=== PATIENT | female | born 1935 | race African-American/Black ===

== ENCOUNTER 2022-01-29 13:52 | Inpatient (IN) | payer OTHER, MEDICAID ==
[~2022-01-29] VITALS: Ht 167.6 cm; Wt 100.0 kg
[2022-01-29] MEDS ORDERED: SODIUM CHLORIDE 0.9% 1,000 ML IV ONE (14:15)
[2022-01-29 14:41] LABS: CLARITY URINE CLEAR (CLEAR); COLOR URINE YELLOW (YELLOW); KETONES URINE NEGATIVE (NEGATIVE); LEUKOCYTE ESTERASE URINE NEGATIVE (NEGATIVE); NITRITE URINE NEGATIVE (NEGATIVE); OCCULT BLOOD URINE 1+ (NEGATIVE); PH URINE 7.5 (4.5-8.0); PROTEIN URINE NEGATIVE (NEGATIVE); SPECIFIC GRAVITY URINE 1.005 (1.005-1.030); UROBILINOGEN URINE 0.2 E.U./dL (0.2-1.0)
[2022-01-29 14:43] LABS: BASOPHILS % 0.4 % (0.0-2.0); HEMATOCRIT. 33.8 % (36.0-48.0); LYMPHOCYTES % 15.3 % (20.0-50.0); MEAN CORPUSCULAR HEMOGLOBIN 28.6 pg (28.0-32.0); MEAN CORPUSCULAR VOLUME 87.9 fL (81.0-99.0); MEAN PLATELET VOLUME 9.9 fl (7.4-10.4); MONOCYTES % 13.6 % (2.0-8.0); NEUTROPHILS % 69.7 % (40.0-76.0); PLATELET 279 x1000/uL (130-400); RED BLOOD CELL COUNT 3.84 mill/uL (4.2-5.4); RED CELL DISTRIBUTION WIDTH 17.1 % (11.6-14.6)
[2022-01-29 14:49] LABS: CHLORIDE 105 mEq/L (98-107)
[2022-01-29] MEDS ORDERED: MAGNESIUM/ALUMINUM HYDROXIDE/SIMETHICONE 30ML UDC PO PRN (19:30)
[2022-01-29] MEDS ORDERED: IPRATROPIUM/ALBUTEROL 0.5-3(2.5)MG/3ML NEB NEB PRN (19:30)
[2022-01-29] MEDS ORDERED: ACETAMINOPHEN 325MG TABLET PO PRN ×2 (19:30)
[2022-01-29] MEDS ORDERED: ONDANSETRON HCL 4MG/2ML INJ IV PRN (19:30)
[2022-01-29] MEDS ORDERED: ZOLPIDEM TARTRATE 5MG TABLET PO PRN (19:30)
[2022-01-29] MEDS ORDERED: HYDRALAZINE 20MG/ML VIAL IV PRN (19:30)
[2022-01-29] MEDS ORDERED: GUAIFENESIN 200MG/10ML SUGAR FREE UDC PO PRN (19:30)
[2022-01-29] MEDS ORDERED: NA PHOS,M-B/NA PHOS,DI-BA ENEMA 118ML PR PRN (19:30)
[2022-01-29] MEDS ORDERED: TRAMADOL 50MG TABLET PO PRN (19:30)
[2022-01-29] MEDS ORDERED: DOCUSATE SODIUM 100MG CAPSULE PO PRN (19:30)
[2022-01-29] MEDS ORDERED: NITROGLYCERIN 0.4MG TABLET SL SL PRN (19:30)
[2022-01-29 20:05] LABS: INR 2.4; PROTHROMBIN TIME 24.2 sec (9.6-11.0)
[2022-01-29 20:34] LABS: FOLIC ACID (FOLATE) SERUM 6.2 ng/mL (>5.38)
[2022-01-29] MEDS: APIXABAN 5 MG TABLET PO SCH (20:48)
[2022-01-29 20:54] LABS: T4 FREE 1.4 ng/dL (0.76-1.46)
[2022-01-29 21:00] VITALS: BP 157/42
[2022-01-29] MEDS ORDERED: LISINOPRIL 20MG TABLET PO SCH (21:00)
[2022-01-29] MEDS: FAMOTIDINE 20MG TABLET PO SCH (21:49)
[2022-01-29] MEDS: ATORVASTATIN CALCIUM 40MG TABLET PO SCH (21:50)
[2022-01-29] MEDS ORDERED: ATOR-2 PO (23:46)
[2022-01-29] MEDS ORDERED: FURO-152 PO (23:46)
[2022-01-29] MEDS ORDERED: DABI150C PO (23:46)
[2022-01-29] MEDS ORDERED: AMLO10TA80 PO (23:46)
[2022-01-29] MEDS ORDERED: BENZ100C86 PO (23:46)
[2022-01-29] MEDS ORDERED: TERA1CAP54 PO (23:46)
[2022-01-29] MEDS ORDERED: LOSA100T32 PO (23:46)
[2022-01-30] VITALS: BP 153/54
[2022-01-30 03:32] LABS: CREATINE KINASE 42 IU/L (26-192); CREATINE KINASE MB FRACTION < 1.0 ng/mL (0.5-3.6)
[2022-01-30 04:00] VITALS: BP 122/51
[2022-01-30] MEDS: APIXABAN 5 MG TABLET PO SCH (06:26)
[2022-01-30 07:30] LABS: BASOPHILS % 0.6 % (0.0-2.0); EOSINOPHILS % 1.1 % (0.0-5.0); HEMATOCRIT. 28.7 % (36.0-48.0); HEMOGLOBIN. 9.6 g/dL (12.0-16.0); LYMPHOCYTES % 16.1 % (20.0-50.0); MEAN CORPUSCULAR HEMOGLOBIN 29.2 pg (28.0-32.0); MEAN CORPUSCULAR VOLUME 86.9 fL (81.0-99.0); MEAN PLATELET VOLUME 10.4 fl (7.4-10.4); MONOCYTES % 13.9 % (2.0-8.0); NEUTROPHILS % 68.3 % (40.0-76.0); PLATELET 246 x1000/uL (130-400); RED CELL DISTRIBUTION WIDTH 16.8 % (11.6-14.6)
[2022-01-30 08:00] VITALS: BP 130/81
[2022-01-30 08:58] LABS: CHLORIDE 108 mEq/L (98-107)
[2022-01-30] MEDS ORDERED: AMLODIPINE 5MG TABLET PO SCH (09:00)
[2022-01-30] MEDS ORDERED: ASPIRIN 325MG EC TABLET PO SCH (09:00)
[2022-01-30 09:15] LABS: CREATINE KINASE 43 IU/L (26-192); CREATINE KINASE MB FRACTION < 1.0 ng/mL (0.5-3.6)
[2022-01-30 09:51] LABS: PHOSPHORUS 3.6 mg/dL (2.5-4.9)
[2022-01-30 12:00] VITALS: BP 151/83
[2022-01-30 13:55] LABS: *AMPHETAMINES SCREEN URINE NEGATIVE (NEGATIVE); *BARBITURATES SCREEN URINE NEGATIVE (NEGATIVE); *BENZODIAZEPINES SCREEN URINE NEGATIVE (NEGATIVE); *COCAINE SCREEN URINE NEGATIVE (NEGATIVE); CANNABINOID URINE SCREEN NEGATIVE (NEGATIVE); METHADONE URINE SCREEN NEGATIVE (NEGATIVE); OPIATES URINE SCREEN NEGATIVE (NEGATIVE); PHENCYCLIDINE URINE SCREEN NEGATIVE (NEGATIVE)
[2022-01-30 16:00] VITALS: BP 146/50
[2022-01-30] MEDS: FAMOTIDINE 20MG TABLET PO SCH (20:29)
[2022-01-30] MEDS: ATORVASTATIN CALCIUM 40MG TABLET PO SCH (20:29)
[2022-01-31] VITALS: BP 118/43
[2022-01-31 04:00] VITALS: BP 169/63
[2022-01-31 08:00] VITALS: BP 159/64
[2022-01-31 12:00] VITALS: BP 160/45
[2022-01-31 16:00] VITALS: BP 155/62
[2022-01-31 20:00] VITALS: BP 170/62
[2022-01-31 21:09] LABS: INR 1.2; PROTHROMBIN TIME 12.7 sec (9.6-11.0)
[2022-01-31] MEDS: FAMOTIDINE 20MG TABLET PO SCH (21:24)
[2022-01-31] MEDS: ATORVASTATIN CALCIUM 40MG TABLET PO SCH (21:24)
[2022-02-01] VITALS: BP 138/45
[2022-02-01 04:00] VITALS: BP 155/49
[2022-02-01 08:00] VITALS: BP 173/53
[2022-02-01] MEDS ORDERED: CEFAZOLIN 1000MG PREMIX 100 ML IV ONE (10:27)
[2022-02-01] MEDS ORDERED: LIDOCAINE HCL/PF 1% 10 MG/ML 5ML VIAL ONE (10:27)
[2022-02-01] MEDS ORDERED: MIDAZOLAM HCL 2 MG/2 ML VIAL ONE ×2 (10:28→11:56)
[2022-02-01] MEDS ORDERED: FENTANYL CITRATE/PF 50MCG/ML 2ML VIAL ONE (10:28)
[2022-02-01] MEDS ORDERED: DIPHENHYDRAMINE 50MG/ML VIAL ONE (11:32)
[2022-02-01] MEDS ORDERED: GENTAMICIN/NS IRRIGATION 500 ML IR ONE (11:55)
[2022-02-01] MEDS ORDERED: LORAZEPAM 2MG/ML CPJ IV NR (12:00)
[2022-02-01] MEDS ORDERED: MORPHINE SULFATE 2 MG/ML CPJ (NOT FOR IM USE) IV PRN (13:00)
[2022-02-01] MEDS ORDERED: NALOXONE HCL 0.4MG/ML VIAL IV PRN (13:15)
[2022-02-01 14:15] VITALS: BP 163/69
[2022-02-01 16:00] VITALS: BP 151/61
[2022-02-01] MEDS: CEFAZOLIN 1000MG PREMIX 50 ML IV SCH ×2 (16:59→21:05)
[2022-02-01] MEDS: HYDROCODONE/ACETAMINOPHEN 5/325MG TABLET PO PRN (17:08)
[2022-02-01 20:00] VITALS: BP 128/52
[2022-02-01] MEDS: FAMOTIDINE 20MG TABLET PO SCH (21:06)
[2022-02-01] MEDS: ATORVASTATIN CALCIUM 40MG TABLET PO SCH (21:06)
[2022-02-02] VITALS: BP 137/66
[2022-02-02 04:00] VITALS: BP_SYST 145; BP_SYST 147; BP_DIAS 59
[2022-02-02] MEDS: CEFAZOLIN 1000MG PREMIX 50 ML IV SCH (05:15)
[2022-02-02] MEDS: HYDROCODONE/ACETAMINOPHEN 5/325MG TABLET PO PRN (05:20)
[2022-02-02 07:55] VITALS: BP 145/52
[2022-02-02 09:06] VITALS: BP 145/52
== END 2022-02-02 14:00 | disposition home health service (06) | DRG 243 ==
LOC: ER 13:52 → 6WST 18:26 → EDBEDREQ 18:31 → EDBEDREQTM 18:31 → ENRESERV 19:38
PROVIDERS: ADMIT Internal Medicine; ATTEND Internal Medicine
PROC: 0JH606Z Insertion of Pacemaker, Dual Chamber into Chest Subcutaneous Tissue and Fascia, Open Approach (ICD-10-PCS; principal; 2022-02-01)
PROC: 02H63JZ Insertion of Pacemaker Lead into Right Atrium, Percutaneous Approach (ICD-10-PCS; 2022-02-01)
PROC: 02HK3JZ Insertion of Pacemaker Lead into Right Ventricle, Percutaneous Approach (ICD-10-PCS; 2022-02-01)
DX: I44.2 Atrioventricular block, complete (principal); I50.32 Chronic diastolic (congestive) heart failure; I48.21 Permanent atrial fibrillation; D63.8 Anemia in other chronic diseases classified elsewhere; Z20.822 Contact with and (suspected) exposure to COVID-19; E78.5 Hyperlipidemia, unspecified; E80.6 Other disorders of bilirubin metabolism; R31.9 Hematuria, unspecified; I50.9 Heart failure, unspecified; I11.0 Hypertensive heart disease with heart failure; Z82.49 Family history of ischemic heart disease and other diseases of the circulatory system; Z90.710 Acquired absence of both cervix and uterus; F03.A0 Unspecified dementia, mild, without behavioral disturbance, psychotic disturbance, mood disturbance, and anxiety
CPT/HCPCS: 33208; 36415; 71045; 80053; 80061; 80305; 81003; 82550; 82553; 82607; 82746; 83036; 83540; 83550; 83735; 84100; 84439; 84443; 84484; 85025; 87426; 93005; 93306; 93970; 99291; C1785; C1898; J0360; J0690; J1200; J2060; J2250; J3010; J3490; J7030

== ENCOUNTER 2023-07-10 15:09 | Emergency (ER) | payer OTHER, MEDICAID ==
[~2023-07-10] VITALS: Ht 170.2 cm; Wt 86.0 kg
[~2023-07-10 15:09] MED LIST: AMLO10TA80 PO; ATOR-2 PO; BENZ100C86 PO; DABI150C PO; FURO-152 PO; LOSA100T33 PO; TERA1CAP54 PO
[2023-07-10 15:14] VITALS: TEMP 98; O2SAT 99
[2023-07-10] MEDS: KETOROLAC 30MG/ML VIAL IV STA (15:27)
[2023-07-10] MEDS ORDERED: MORPHINE SULFATE 4 MG/ML INJ (FOR IV/IM USE) IV STA (15:27)
[2023-07-10] MEDS: ONDANSETRON HCL 4MG/2ML INJ IV STA (16:11)
[2023-07-10] MEDS: MORPHINE SULFATE 2 MG/ML CPJ (NOT FOR IM USE) IV ONE (16:11)
[2023-07-10 16:35] LABS: BASOPHILS % 0.7 % (0.0-2.0); EOSINOPHILS % 0.6 % (0.0-5.0); HEMATOCRIT. 36.3 % (36.0-48.0); HEMOGLOBIN. 12.3 g/dL (12.0-16.0); MEAN CORPUSCULAR HEMOGLOBIN 30.7 pg (28.0-32.0); MEAN CORPUSCULAR VOLUME 90.3 fL (81.0-99.0); MEAN PLATELET VOLUME 10.7 fl (7.4-10.4); MONOCYTES % 10.3 % (2.0-8.0); NEUTROPHILS % 80.4 % (40.0-76.0); PLATELET 186 x1000/uL (130-400); RED BLOOD CELL COUNT 4.02 mill/uL (4.2-5.4); RED CELL DISTRIBUTION WIDTH 16.3 % (11.6-14.6); WHITE BLOOD COUNT 6.6 x1000/uL (4.5-11.0)
[2023-07-10 16:44] LABS: INR 1.2; PROTHROMBIN TIME 12.7 sec (9.6-11.0)
[2023-07-10 16:47] LABS: CARBON DIOXIDE 23 mEq/L (21-32); CHLORIDE 98 mEq/L (98-107); POTASSIUM 3.5 mEq/L (3.5-5.1); SODIUM 129 mEq/L (136-145)
[2023-07-10 16:48] LABS: CALCIUM 9.4 mg/dL (8.7-10.4)
[2023-07-10 16:52] LABS: CREATININE 1.1 mg/dL (0.6-1.0); GLUCOSE 97 mg/dL (70-105)
[2023-07-10 16:53] LABS: UREA NITROGEN BLOOD 19 mg/dL (9-23)
[2023-07-10 16:54] LABS: ALANINE AMINOTRANSFERASE 11 IU/L (10-49); ALBUMIN 4.4 g/dL (3.2-4.8); ASPARTATE AMINOTRANSFERASE 24 IU/L (<34)
[2023-07-10 16:55] LABS: BILIRUBIN TOTAL 2.5 mg/dL (0.1-1.0); PROTEIN TOTAL 7.8 g/dL (6.0-8.3); TROPONIN I HIGH SENSITIVITY 33 ng/L (3.0-34)
[2023-07-10] MEDS: SODIUM CHLORIDE 0.9% 1,000 ML IV ONE (18:07)
[2023-07-10 18:09] VITALS: BP 123/66; PULSE 66; RESP 14
[2023-07-10] MEDS ORDERED: PROT40 MT (18:19)
[2023-07-10] MEDS ORDERED: MAG-55 MT (18:19)
== END 2023-07-10 19:10 | disposition home or self-care (01) ==
LOC: ER 15:09 → CANBEDREQ 07-12 19:01
DX: R10.13 Epigastric pain (principal); I11.9 Hypertensive heart disease without heart failure; I25.2 Old myocardial infarction; F03.90 Unspecified dementia, unspecified severity, without behavioral disturbance, psychotic disturbance, mood disturbance, and anxiety; Z98.890 Other specified postprocedural states
CPT/HCPCS: 99285; 96374; 76705; 96361; 96375; 80053; 83690; 85025; 85610; 84484; 36415; 93005; J2405; J2270; J7030